=== PATIENT | female | born 1995 | race Caucasian/White ===

== ENCOUNTER 2019-07-17 15:49 | Inpatient (IN) ==
[2019-07-17] MEDS ORDERED: NS 1,000 ML IV ONE (16:27)
[2019-07-17] MEDS ORDERED: SOLU-MEDROL IV ONE (16:27)
[2019-07-17] MEDS ORDERED: ROCEPHIN IM ONE (16:27)
[2019-07-17] MEDS ORDERED: XYLOCAINE-MPF 1% INJ ONE (16:29)
[2019-07-17] MEDS ORDERED: ZITHROMAX LIQUID PO ONE (16:29)
--- NOTE | 2019-07-17 17:03 | Diag Imaging Result Doc PS360 ---
EXAM: CHEST-2 VIEWS HISTORY: short of breath TECHNIQUE: PA and Lateral chest x-ray COMPARISON: None. FINDINGS: The cardiomediastinal silhouette is within normal limits. There are coarse interstitial infiltrates with peribronchial cuffing and hyperinflation. No effusions. No pneumothorax. This appearance may be seen with cystic fibrosis. Correlate clinically. Tubing projects over the right neck. IMPRESSION: Peribronchial thickening and coarse bilateral interstitial infiltrates suggesting marked chronic lung disease. Electronically signed by Coty Mari 07/17/2019 5:01 PM
[2019-07-17] MEDS ORDERED: ROCEPHIN 1 GM in NS 50 ML IV ONE (18:01)
[2019-07-17 18:12] LABS: BASO# 0.07 X1000 (0.0-0.2); BASO% 0.5 % (0.0-0.8); EOS# 0.18 X1000 (0.0-0.7); EOS% 1.3 % (0.0-10.0); HEMOGLOBIN 12.6 g/dL (12.0-16.0); IMM GRAN# 0.02 X1000 (0.0-0.04); IMM GRAN% 0.1 % (0.0-0.5); LYMPH# 2.86 X1000 (1.2-3.4); LYMPH% 20.4 % (20.5-51.1); MCH 26.3 PG (27-31); MCHC 30.7 g/dL (33-37); MCV 85.6 FL (81-99); MONO# 0.84 X1000 (0.11-0.59); MPV 10.5 FL (7.4-10.4); NEUT# 10.04 X1000 (1.4-6.5); NEUT% 71.7 % (42.2-75.2); PLT 252 X1000 (130-400); RBC 4.79 XMIL (4.2-5.4); RDW 16.5 % (11.5-14.5); WBC 14.01 X1000 (4.8-10.8)
[2019-07-17 18:16] LABS: BE 0.5 mmoll (-3.0-3.0); BLOOD TYPE ARTERIAL; HCO3-(ACT) 25.2 mmoll (20.0-26.0); METHB 1.2 % (0.0-1.5); O2(CT) 17.7 mL/dL (15.0-23.0); O2HB 93.4 % (95.0-99.0); PCO2(98.6) 50 mmHg (35-45); PO2(98.6) 87 mmHg (60-100); SAMPLE BLOOD; SAO2 95.9 % (95.0-100.0); THB 13.4 g/dL (11.5-17.4); pH(98.6) 7.34 (7.35-7.45)
[2019-07-17 18:17] LABS: INR 1.06; PROTIME 14.4 Seconds (11.0-16.0)
[2019-07-17 18:18] LABS: PTT 43.5 Seconds (22.3-41.8)
[2019-07-17 18:19] LABS: ALLEN TEST YES; MODALITY CANNULA
[2019-07-17] MEDS ORDERED: DUONEB (A & A) INH ONE (18:22)
[2019-07-17 18:49] LABS: URINE SOURCE CLEAN CATCH
[2019-07-17 18:51] LABS: BILIRUBIN URINE NEGATIVE (NEGATIVE); BLOOD URINE NEGATIVE (NEGATIVE); COLOR YELLOW; GLUCOSE URINE NEGATIVE (NEGATIVE); KETONE URINE NEGATIVE (NEGATIVE); LEUKOCYTES URINE NEGATIVE (NEGATIVE); NITRITE URINE NEGATIVE (NEGATIVE); PH URINE 6.5; PROTEIN URINE TRACE mg/dL (NEGATIVE); SP GRAVITY URINE 1.022; TURBIDITY URINE HAZY (CLEAR); UROBILINOGEN URINE 3 mg/dL (NORMAL)
[2019-07-17 18:51] LABS: ALBUMIN 4.2 g/dL (3.5-5.0); ALKALINE PHOSPHATASE 181 U/L (32-104); BUN 24 mg/dL (8-22); CALCIUM 9.1 mg/dL (8.8-10.2); CK PROFILE 40 U/L (24-173); CREATININE 0.3 mg/dL (0.5-0.9); ESTIMATED GFR > 60; GLUCOSE 212 mg/dL (70-104); GOT 16 U/L (10-30); GPT 14 U/L (10-36); TCO2 22 mmol/L (25-35); TOTAL PROTEIN 8.6 g/dL (6.3-8.3)
[2019-07-17 18:53] LABS: UR EPITHELIAL CELLS <10 /HPF (<10); URINE BACTERIA NEGATIVE /HPF; URINE RBC <10 /HPF (<10); URINE WBC <10 /HPF (<10)
[2019-07-17 19:12] LABS: CHLORIDE 105 mmol/L (98-107); POTASSIUM 4.2 mmol/L (3.5-5.1); SODIUM 142 mmol/L (136-145)
[2019-07-17 19:15] LABS: AGAP 14; COSMO 293
[2019-07-17] MEDS ORDERED: ROCEPHIN 1 GM in NS 50 ML IV SCH (21:02)
[2019-07-17] MEDS ORDERED: TYLENOL PO PRN (21:02)
[2019-07-17] MEDS ORDERED: ZOFRAN IV PRN (21:02)
[2019-07-17] MEDS: DIAMOX PO SCH (22:01)
[2019-07-17] MEDS: NS 1,000 ML IV SCH (22:01)
[2019-07-17] MEDS: LIORESAL PO SCH (22:01)
[2019-07-17] MEDS: REGLAN PO SCH (22:01)
[2019-07-17] MEDS: DOXYCYCLINE 100 MG in NS 250 ML IV SCH (22:36)
[2019-07-17] MEDS: DUONEB (A & A) INH PRN (23:20)
[2019-07-17] MEDS: HUMALOG SUBQ SCH (23:44)
[2019-07-18] MEDS: HUMALOG SUBQ SCH (06:26)
[2019-07-18 06:49] LABS: HEMATOCRIT 34.6 % (37.0-47.0); HEMOGLOBIN 10.4 g/dL (12.0-16.0); MCHC 30.1 g/dL (33-37); MCV 86.5 FL (81-99); RDW 16.1 % (11.5-14.5); WBC 12.31 X1000 (4.8-10.8)
[2019-07-18 06:53] LABS: HEMOGLOBIN A1C 7.8 % (4.8-6.0)
[2019-07-18 07:06] LABS: AGAP 10; ALBUMIN 3.2 g/dL (3.5-5.0); ALKALINE PHOSPHATASE 152 U/L (32-104); BUN 22 mg/dL (8-22); CALCIUM 8.1 mg/dL (8.8-10.2); CHLORIDE 102 mmol/L (98-107); COSMO 287; CREATININE 0.3 mg/dL (0.5-0.9); ESTIMATED GFR > 60; GOT 13 U/L (10-30); GPT 12 U/L (10-36); POTASSIUM 4.4 mmol/L (3.5-5.1); SODIUM 132 mmol/L (136-145); TCO2 20 mmol/L (25-35); TOTAL PROTEIN 7.1 g/dL (6.3-8.3)
[2019-07-18 07:08] LABS: GLUCOSE 435 mg/dL (70-104)
--- NOTE | 2019-07-18 07:12 | HISTORY AND PHYSICAL ---
CHIEF COMPLAINT: Fever, cough. HISTORY OF PRESENT ILLNESS: The patient is a 24-year-old female who has a known history of cystic fibrosis. She presented to the emergency department with increased cough, congestion. Notes that symptoms have been going on for 2 days. She was seen approximately a week ago, placed on antibiotics by her electrical assembler. However, she notes that symptoms seem to have worsened over the past 2 days. Denies any chills. Has had some low-grade fevers. Has had production to her cough. ALLERGIES: No known drug allergies. MEDICATIONS: Diamox 25 b.i.d., albuterol p.r.n., baclofen, Levemir 16 units daily. REVIEW OF SYSTEMS: Positive cough, congestion, shortness of breath, increased work of breathing, production to her cough. Denies any wheezing. Denies headaches, blurred vision. Denies any focalized weakness. Denies diarrhea, constipation. Denies melena, hematochezia. Denies dysuria, frequency, urgency. PAST MEDICAL HISTORY: Cystic fibrosis. PAST SURGICAL HISTORY: None. FAMILY HISTORY: She has got a significant family history of cystic fibrosis. SOCIAL HISTORY: She lives at home, is cared for by her family. Does not smoke, drink, or use illicit substances. PHYSICAL EXAMINATION: VITAL SIGNS: She is currently afebrile, pulse 116, respiratory rate 26, BP 105/64, saturation 97% on room air. GENERAL: The patient is in mild distress. HEENT: Normocephalic. Her mucous membranes are dry. NECK: Supple. CARDIOVASCULAR: Tachycardia. CHEST: Decreased breath sounds bilaterally. Positive rhonchi throughout. Increased rate. No wheezing. ABDOMEN: Soft. EXTREMITIES: Moves all extremities. NEUROLOGIC: No changes. ASSESSMENT: 1. Pneumonia. 2. Cystic fibrosis. 3. Mild respiratory distress. 4. Early sepsis. PLAN: Continue antibiotics, continue fluids, and will follow. cc: Patrice Sexton MD
[2019-07-18] MEDS ORDERED: PULMOZYME INH SCH (07:30)
[2019-07-18] MEDS: HUMALOG (PARKWAY) SUBQ SCH ×4 (08:06→20:35)
[2019-07-18] MEDS: DOXYCYCLINE 100 MG in NS 250 ML IV SCH ×2 (10:27→21:48)
[2019-07-18] MEDS: LEVEMIR INSULIN *HA SUBQ SCH ×2 (10:27→10:36)
[2019-07-18] MEDS: LIORESAL PO SCH ×2 (11:45→20:34)
[2019-07-18] MEDS: DIAMOX PO SCH ×2 (11:45→20:34)
[2019-07-18] MEDS: REGLAN PO SCH ×2 (11:46→20:35)
[2019-07-18] MEDS: NS 1,000 ML IV SCH (11:58)
[2019-07-18] MEDS: DUONEB (A & A) INH PRN ×3 (11:59→19:17)
[2019-07-18] MEDS: MAXIPIME 2 GM in NS 100 ML IV SCH (12:41)
[2019-07-18] MEDS ORDERED: LIPASE PO SCH (13:45)
[2019-07-18] MEDS ORDERED: PROTEASE PO SCH (13:45)
[2019-07-18] MEDS ORDERED: AMYLASE PO SCH (13:45)
--- NOTE | 2019-07-18 15:29 | Diag Imaging Result Doc PS360 ---
EXAM: CT THORAX W/CONTRAST HISTORY: pneumonia TECHNIQUE: CT chest with intravenous contrast COMPARISON: None. FINDINGS: No pleural effusions. No cardiomegaly. No aortic aneurysm or dissection. No central pulmonary emboli. Moderately prominent mediastinal and hilar lymph nodes. There is bilateral bronchial wall thickening. Groundglass upper lobe infiltrates. Small hiatal hernia. Hazy left axillary lymph nodes. IMPRESSION: 1.Mild to moderately enlarged mediastinal and hilar adenopathy 2.Bronchial wall thickening with bilateral groundglass infiltrates 3.Small hiatal hernia This exam was performed using automated exposure control, adjustment of mA or kV according to patient size, and/or use of iterative reconstruction technique. Electronically signed by Kenyon Perez 07/18/2019 3:27 PM
--- NOTE | 2019-07-18 16:41 | PROGRESS NOTE ---
DATE: 07/18/2019 SUBJECTIVE: Patient has no major complaints. OBJECTIVE: Blood pressure is 95/63, heart rate of 104, respiratory rate of 20, temperature 97.6 degrees, 94% on 2.5 L.Cardiovascular: Regular rate and rhythm. Pulmonary: Bilateral breath sounds clear to auscultation diminished at the bases. No wheezing, some rales. LAB: White count 12, hemoglobin and hematocrit 10 and 34, platelets 225,000. Sugars up to 435. PROBLEM LIST: 1. Pneumonia in the setting of cystic fibrosis. We will change her to cefepime to better cover Pseudomonas in addition to her doxycycline, may need to consider vancomycin or Zyvox additionally. 2. Type 2 diabetes is not been well controlled but she has not been on her regular medications. 3. Protein malabsorption possibly related to CF. She is on tube feeds so we will continue treatment and follow closely. DISPOSITION: Pending her clinical status she will probably need a couple days here just to make sure she stabilizes. We will continue to follow closely. cc: Willard Chavarria MD
[2019-07-18] MEDS: CREON PO SCH ×2 (17:24→21:54)
[2019-07-18] MEDS ORDERED: LEVEMIR INSULIN *HA SUBQ SCH (21:00)
[2019-07-19] MEDS: MAXIPIME 2 GM in NS 100 ML IV SCH ×2 (01:27→15:33)
[2019-07-19] MEDS: LOVENOX SUBQ SCH ×2 (05:08→05:09)
[2019-07-19] MEDS: DUONEB (A & A) INH PRN ×2 (06:18→22:10)
[2019-07-19] MEDS: HUMALOG (PARKWAY) SUBQ SCH ×4 (06:29→21:37)
[2019-07-19 08:00] LABS: BASO# 0.03 X1000 (0.0-0.2); BASO% 0.4 % (0.0-0.8); EOS# 0.09 X1000 (0.0-0.7); EOS% 1.3 % (0.0-10.0); HEMATOCRIT 34.9 % (37.0-47.0); HEMOGLOBIN 10.3 g/dL (12.0-16.0); IMM GRAN# 0.03 X1000 (0.0-0.04); IMM GRAN% 0.4 % (0.0-0.5); LYMPH# 2.17 X1000 (1.2-3.4); LYMPH% 30.9 % (20.5-51.1); MCH 25.5 PG (27-31); MCHC 29.5 g/dL (33-37); MCV 86.4 FL (81-99); MONO# 0.49 X1000 (0.11-0.59); MPV 10.2 FL (7.4-10.4); NEUT# 4.22 X1000 (1.4-6.5); PLT 206 X1000 (130-400); RBC 4.04 XMIL (4.2-5.4); RDW 16.4 % (11.5-14.5); WBC 7.03 X1000 (4.8-10.8)
[2019-07-19 08:25] LABS: AGAP 11; BUN 18 mg/dL (8-22); CALCIUM 8.6 mg/dL (8.8-10.2); CHLORIDE 104 mmol/L (98-107); COSMO 285; CREATININE 0.3 mg/dL (0.5-0.9); ESTIMATED GFR > 60; GLUCOSE 298 mg/dL (70-104); POTASSIUM 3.8 mmol/L (3.5-5.1); SODIUM 136 mmol/L (136-145); TCO2 21 mmol/L (25-35)
[2019-07-19] MEDS: DIAMOX PO SCH ×2 (09:50→21:00)
[2019-07-19] MEDS: DOXYCYCLINE 100 MG in NS 250 ML IV SCH ×2 (09:51→20:58)
[2019-07-19] MEDS: CREON PO SCH ×4 (09:51→18:59)
[2019-07-19] MEDS: LIORESAL PO SCH ×2 (10:00→21:00)
[2019-07-19] MEDS: REGLAN PO SCH ×2 (10:00→21:00)
[2019-07-19] MEDS: PATIENT'S OWN MED INH SCH (11:03)
--- NOTE | 2019-07-19 11:46 | Diag Imaging Result Doc PS360 ---
EXAM: CHEST-2 VIEWS HISTORY: pna TECHNIQUE: PA and Lateral chest x-ray COMPARISON: 07/17/2019 FINDINGS: The cardiomediastinal silhouette is within normal limits. Marked bilateral interstitial infiltrates and peribronchial thickening may be slightly improved in the left lower lung zone. The remainder of the lungs are unchanged. No pleural effusion. There is new, mild subpleural edema within the fissures. There is a small bore catheter right neck. IMPRESSION: Perhaps mild improvement of the lung markings left lung. Otherwise, unchanged significant bilateral interstitial lung disease. Electronically signed by Coty Mari 07/19/2019 11:44 AM
[2019-07-19] MEDS: LEVEMIR INSULIN *HA SUBQ SCH (20:59)
[2019-07-20] MEDS: MAXIPIME 2 GM in NS 100 ML IV SCH ×2 (01:29→13:38)
[2019-07-20 07:10] LABS: AGAP 11; BUN 18 mg/dL (8-22); CALCIUM 8.6 mg/dL (8.8-10.2); CHLORIDE 104 mmol/L (98-107); COSMO 283; CREATININE 0.2 mg/dL (0.5-0.9); ESTIMATED GFR > 60; GLUCOSE 202 mg/dL (70-104); POTASSIUM 4.2 mmol/L (3.5-5.1); SODIUM 138 mmol/L (136-145); TCO2 23 mmol/L (25-35)
[2019-07-20] MEDS: HUMALOG (PARKWAY) SUBQ SCH ×4 (07:35→21:41)
[2019-07-20] MEDS: LOVENOX SUBQ SCH (07:35)
[2019-07-20 07:51] LABS: BASO# 0.07 X1000 (0.0-0.2); BASO% 1.1 % (0.0-0.8); EOS# 0.39 X1000 (0.0-0.7); EOS% 6.2 % (0.0-10.0); HEMATOCRIT 34.1 % (37.0-47.0); HEMOGLOBIN 10.3 g/dL (12.0-16.0); IMM GRAN# 0.01 X1000 (0.0-0.04); IMM GRAN% 0.2 % (0.0-0.5); LYMPH# 1.91 X1000 (1.2-3.4); LYMPH% 30.5 % (20.5-51.1); MCHC 30.2 g/dL (33-37); MCV 86.1 FL (81-99); MONO# 0.56 X1000 (0.11-0.59); MONO% 8.9 % (1.7-9.3); MPV 10.4 FL (7.4-10.4); NEUT# 3.32 X1000 (1.4-6.5); NEUT% 53.1 % (42.2-75.2); PLT 212 X1000 (130-400); RBC 3.96 XMIL (4.2-5.4); RDW 16.3 % (11.5-14.5); WBC 6.26 X1000 (4.8-10.8)
[2019-07-20] MEDS: DOXYCYCLINE 100 MG in NS 250 ML IV SCH ×2 (08:26→21:28)
[2019-07-20] MEDS: DIAMOX PO SCH ×2 (08:27→21:20)
[2019-07-20] MEDS: CREON PO SCH ×3 (08:27→21:00)
[2019-07-20] MEDS: LIORESAL PO SCH ×2 (08:27→21:21)
[2019-07-20] MEDS: REGLAN PO SCH ×2 (08:27→21:21)
[2019-07-20] MEDS ORDERED: S2 RACEPINEPHRINE 2.25% ONE (08:40)
[2019-07-20] MEDS ORDERED: ALBUTEROL NEB ONE (08:45)
[2019-07-20] MEDS: PATIENT'S OWN MED INH SCH (08:56)
[2019-07-20] MEDS: ALBUTEROL NEB INH PRN (19:57)
[2019-07-20] MEDS: LEVEMIR INSULIN *HA SUBQ SCH (21:41)
[2019-07-21] MEDS: MAXIPIME 2 GM in NS 100 ML IV SCH ×2 (02:26→17:56)
[2019-07-21 05:35] LABS: BASO# 0.06 X1000 (0.0-0.2); BASO% 0.7 % (0.0-0.8); EOS# 0.43 X1000 (0.0-0.7); EOS% 4.9 % (0.0-10.0); HEMATOCRIT 36.5 % (37.0-47.0); HEMOGLOBIN 10.9 g/dL (12.0-16.0); IMM GRAN# 0.01 X1000 (0.0-0.04); IMM GRAN% 0.1 % (0.0-0.5); LYMPH# 2.73 X1000 (1.2-3.4); LYMPH% 31.3 % (20.5-51.1); MCH 25.7 PG (27-31); MCHC 29.9 g/dL (33-37); MCV 86.1 FL (81-99); MPV 10.5 FL (7.4-10.4); PLT 253 X1000 (130-400); RBC 4.24 XMIL (4.2-5.4); RDW 16.3 % (11.5-14.5); WBC 8.73 X1000 (4.8-10.8)
--- NOTE | 2019-07-21 05:42 | PROGRESS NOTE ---
DATE: 07/20/2019 SUBJECTIVE: Patient notes that she is feeling a lot better. She is having less cough, congestion. Denies any fevers. PHYSICAL EXAMINATION: Vital Signs: She is afebrile. Pulse is 117, respiratory rate 18, BP 105/62. General: Patient is awake, alert. She is much improved currently from her admission. HEENT: Normocephalic. Neck: Supple. Cardiovascular: Tachycardia. Chest: Much improved air movement. No wheezing. Minimal rhonchi. Abdomen: Soft, nondistended, nontender. Extremities: Moves upper extremities. Lower extremities decreased movement due to cystic fibrosis. ASSESSMENT: 1. Pneumonia. 2. Cystic fibrosis. 3. Type 2 diabetes. 4. Protein malabsorption. PLAN: We are going to continue patient in the hospital today. Hopefully she will continue to improve and we can discharge her tomorrow. cc: Patrice Sexton MD
[2019-07-21] MEDS: LOVENOX SUBQ SCH (06:30)
[2019-07-21] MEDS: DOXYCYCLINE 100 MG in NS 250 ML IV SCH (09:38)
[2019-07-21] MEDS: DIAMOX PO SCH (09:40)
[2019-07-21] MEDS: CREON PO SCH (09:40)
[2019-07-21] MEDS: REGLAN PO SCH (09:40)
[2019-07-21] MEDS: LIORESAL PO SCH (09:40)
[2019-07-21] MEDS: HUMALOG (PARKWAY) SUBQ SCH ×2 (09:50→14:27)
[2019-07-21] MEDS: PATIENT'S OWN MED INH SCH (10:14)
[2019-07-21] MEDS: ALBUTEROL NEB INH PRN (10:15)
[2019-07-21 15:40] VITALS: BP 117/74
--- NOTE | 2019-07-22 15:38 | DISCHARGE SUMMARY ---
ADMISSION DATE: 07/17/2019 DISCHARGE DATE: 07/21/2019 PRIMARY CARE PHYSICIAN: DAE Fraser. ADMISSION DIAGNOSES: 1. Pneumonia. 2. Cystic fibrosis. 3. Mild respiratory distress. 4. Early sepsis. DISCHARGE DIAGNOSES: 1. Pneumonia, improved. 2. Cystic fibrosis. 3. Type 2 diabetes. 4. Protein malabsorption. SUMMARY OF FINDINGS: This is a 24-year-old female with a known history of cystic fibrosis, who presented with increased cough, congestion. Symptoms have been going on for 2 days prior to arriving. About a week ago, had been placed on some antibiotics by her neuroscience director na, but felt that her symptoms had worsened over the past 2 days prior to arriving, had some low-grade fevers and production to her cough. Her chest x-ray showed peribronchial thickening and coarse bilateral interstitial infiltrates suggesting marked chronic lung disease. Her chest CT showed mild to moderately enlarged mediastinal and hilar adenopathy, bronchial wall thickening with bilateral ground-glass infiltrates. She was placed on IV antibiotics, breathing treatments, and pulmonary toilet, and has improved. Has been afebrile for greater than 24 hours. White count is back to normal this morning at 8.73, and so it is now felt that she can safely be discharged home. DISCHARGE MEDICATIONS: Include cefdinir 300 mg p.o. b.i.d., doxycycline 100 mg per her PEG tube b.i.d. She will continue her home medications, Diamox 250 mg p.o. b.i.d., baclofen 10 mg p.o. b.i.d., Pulmozyme 2.5 mg inhalation daily, Levemir 16 units subcutaneous at bedtime, Creon 45782 unit capsule as directed, Reglan 10 mg p.o. b.i.d., and albuterol neb inhalation b.i.d. FOLLOWUP: She will need to follow up with her primary care physician in the next 1 to 2 weeks and call their office for an appointment. All discharge instructions have been reviewed with the patient and she verbalizes understanding. TIME SPENT: 35 minute discharge. Dictated by DAE Franklin for Patrice Sexton MD cc: DAE Franklin MD Sherry Clounch
--- NOTE | 2019-07-22 22:01 | DISCHARGE SUMMARY ---
ADMISSION DATE: 07/17/2019 DISCHARGE DATE: 07/21/2019 ADDENDUM: Patient seen and examined by myself. Full note dictated and discussed with nurse practitioner. Patient has a known history of cystic fibrosis. Presented to the hospital with new onset pneumonia. Thankfully, her type 2 diabetes remained stable through the hospital stay. She was placed on antibiotics. On discharge, she is feeling much better. In fact, states that she feels back to her usual self. Therefore, we will discharge her home. She will continue doxycycline and Omnicef at home for a total 7-day treatment. Please see full note. cc: Patrice Sexton MD
--- NOTE | 2019-08-15 19:47 | PROVIDER DOCUMENTATION ---
This chart was entered by Natalia Summers Scribe, acting as scribe for Deejay Pinedo MD. HPI-Respiratory General - General Chief Complaint: SEPSIS ALERT - P Stated Complaint: SOB-CF PATIENT Time Seen by Provider: 07/17/19 16:04 Source: family (mother) Allergies/Adverse Reactions: Patient Allergies Allergy/AdvReac Type Severity Reaction Status Date / Time No Known Allergies Allergy Verified 07/17/19 16:29 Home Medications: Home Medication List Medication Instructions Recorded Confirmed Last Taken Type Acetazolamide [Diamox] 250 mg PO BID 07/17/19 07/17/19 Unknown History Albuterol Sulfate 0.63 mg INHALATION BID 07/17/19 07/17/19 Unknown History Baclofen 10 mg PO BID 07/17/19 07/17/19 Unknown History Dornase Antoni [Pulmozyme] 2.5 mg INH DAILY 07/17/19 07/17/19 Unknown History Insulin Detemir [Levemir] 16 unit SUBQ DAILY 07/17/19 07/17/19 Unknown History Lipase/Protease/Amylase [Ahsan Zamorano 1 ea PO DIRECTED 07/17/19 07/17/19 Unknown History 24,000 Units Capsule] Metoclopramide [Reglan] 10 mg PO BID 07/17/19 07/17/19 Unknown History - History of Present Illness-Resp Nature of Presenting Problem: Patient is a 24 year old female who presents with mother for shortness of angie ath. Mother states cough with shortness of breath. Mother reports symptoms have been present for 2 days. Mother states patient has cystic fibrosis. Mother reports patient was placed on an antibiotic 1 week ago by her railroad dining car stewardess. Patient denies fever and body aches. Dr Pinedo of [place] is railroad dining car stewardess, routinely uses BID neb albuterol, pulmozyme and chest percussion vest. Quality of Pain: reports: none Severity in ED: reports: mild Onset/Duration: reports: 2 days ago Timing: reports: still present, getting worse Cough Quality/Degree: reports: moderate, productive cough, sputum Associated Symptoms: reports: cough, shortness of breath Similar Symptoms Previously?: Yes Recently seen or treated by another doctor?: Yes Review of Systems - Adult - REVIEW OF SYSTEMS - ADULT ROS:: ROS per family (mother) Constitutional: reports: no symptoms reported. denies: chills, fever, fatique Eyes: reports: no symptoms reported Ears, Nose, Mouth & Throat: reports: no symptoms reported Cardiovascular: reports: no symptoms reported Respiratory: reports: see HPI, cough, shortness of breath. denies: wheezing Gastrointestinal: reports: no symptoms reported Genitourinary: reports: no symptoms reported Musculoskeletal: reports: no symptoms reported Integumentary: reports: no symptoms reported Neurological: reports: no symptoms reported Psychiatric: reports: no symptoms reported Endocrine: reports: no symptoms reported Hematologic/Lymphatic: reports: no symptoms reported Allergic/Immunologic: reports: no symptoms reported All Other Systems: Reviewed and Negative Past History - Adult - PAST MEDICAL HISTORY-ADULT Review of Records: reports: Old Records Reviewed, Nursing Assessment Review, Medications Reviewed, Social history reviewed & non-contributory. Major Childhood Illnesses: reports: denies history Cardiovascular: reports: denies history Respiratory: reports: cystic fibrosis Gastrointestinal: reports: denies history Obstetrical/Gynecological: reports: denies history Genitourinary: reports: denies history Musculoskeletal: reports: denies history Neurological: reports: denies history Psychiatric: reports: denies history Endocrine/Immune: reports: denies history Other Conditions: reports: denies history - PRIOR SURGERIES/PROCEDURES Surgical/Procedure History: reports: reviewed, not pertinent - IMMUNIZATION STATUS Childhood Immunizations: See Nurse Assessment Flu Vaccine: See Nurse Assessment - FAMILY HISTORY Family History: reviewed, not pertinent - SOCIAL HISTORY Smoking: denies Substance Use: denies Living Situation: family Physical Exam-General - PHYSICAL EXAM-ADULT Initial Vital Signs Reviewed: Yes - CONSTITUTIONAL General Appearance: alert, mild distress. negative: lethargic - HEAD, EARS, NOSE, MOUTH & THROAT HENMT: normocephalic/atraumatic, other (dry mucous membranes). negative: angioedema - RESPIRATORY Respiratory: chest non-tender, respiratory distress (mild), rales (moderate diffuse rales bilaterally), increased rate - CARDIOVASCULAR Cardiovascular: normal peripheral pulses, tachycardia. negative: regular rate, rhythm - GASTROINTESTINAL (ABDOMEN) Abdominal Exam: normal bowel sounds, non tender, soft. negative: distended, guarding - SKIN Integumentary: normal turgor, warm/dry, pallor. negative: diaphoresis - PSYCHIATRIC Psych/Mental Status: normal mood/affect. negative: anxious, tearful Progress - PLAN OF CARE/RESULTS Progress/Plan/Lab Results: Vital Signs - 8 hr 12//19 15:54 Pulse Rate 116 H Respiratory Rate 26 H Blood Pressure 105/64 O2 Sat by Pulse Oximetry 97 Laboratory Results - last 24 hr 07/17/19 07/17/19 07/17/19 17:52 17:52 17:52 WBC 14.01 H RBC 4.79 Hgb 12.6 Hct 41.0 MCV 85.6 MCH 26.3 L MCHC 30.7 L RDW Std Deviation 16.5 H Plt Count 252 MPV 10.5 H Immature Gran % (Auto) 0.1 Neut % (Auto) 71.7 Lymph % (Auto) 20.4 L Kershaw % (Auto) 6.0 Eos % (Auto) 1.3 Baso % (Auto) 0.5 Immature Gran # (Auto) 0.02 Neut # (Auto) 10.04 H Lymph # (Auto) 2.86 Kershaw # (Auto) 0.84 H Eos # (Auto) 0.18 Baso # (Auto) 0.07 PT 14.4 INR 1.06 PTT (Actin FS) 43.5 H Specimen Type ARTERIAL Sample Site R RADIAL pH 7.34 L pCO2 50 H pO2 87 HCO3 25.2 Base Excess 0.5 Oxyhemoglobin 93.4 L ABG O2 Sat (Calculated) 17.7 ABG O2 Saturation 95.9 ABG Carboxyhemoglobin 1.40 ABG Methemoglobin 1.2 Luca Test YES A-a O2 Difference 79.0 Total Hemoglobin 13.4 Lactate 0.50 Liter Flow 3.0 Blood Gas Modality CANNULA FiO2 % 32.0 Orders Category Date Time Status Cardiac Monitoring DIRECTED Care 07/17/19 16:03 Active IV Insertion ORDERED Care 07/17/19 16:03 Completed Notify MD of + Sepsis Screen NOW Care 07/17/19 16:03 Active Notify Physician As Ordered Care 07/17/19 16:03 Active CHEST-2 VIEWS [RAD] Stat Exams 07/17/19 16:26 Completed ABG [RESP] Routine Lab 07/17/19 17:52 Completed BLOOD CULTURE [BLDCUL] Stat Lab 07/17/19 17:56 Ordered CBC WITH DIFF [HEME] Stat Lab 07/17/19 17:52 Completed CK PROFILE [SP CHEM] Stat Lab 07/17/19 17:52 Received COMPREHENSIVE METABOLIC PANEL [CHEM] Stat Lab 07/17/19 17:52 Received LACTATE, PLASMA [CHEM] Lab 07/17/19 17:52 Received LACTATE, PLASMA [CHEM] Lab 07/17/19 19:15 Uncollected LACTATE, PLASMA [CHEM] Lab 07/17/19 22:15 Uncollected PROTIME WITH INR [COAG] Stat Lab 07/17/19 17:52 Completed PTT [COAG] Stat Lab 07/17/19 17:52 Completed TROPONIN T Stat Lab 07/17/19 17:52 Received URINALYSIS W/POSS RFLX CULT [URINALYSIS] Stat Lab 07/17/19 16:03 Uncollected 0.9% Sodium Chloride Inj [Ns] 1,000 ml Med 07/17/19 16:27 Discontinued IV 999 mls/hr Albuterol 2.5MG/Ipratrop 0.5MG [Duoneb (A & A)] Med 07/17/19 18:22 Once 3 ml INH NOW ONE Azithromycin [Zithromax Liquid] Med 07/17/19 16:29 Discontinued 400 mg PO NOW ONE CefTRIAXONE [Rocephin] Med 07/17/19 16:27 Discontinued 1 gm IM NOW ONE CefTRIAXONE [Rocephin] 1 gm Med 07/17/19 18:01 Active 0.9% Sodium Chloride Inj [Ns] 50 ml IV NOW Lidocaine 1% Pf [Xylocaine-Mpf 1%] Med 07/17/19 16:29 Discontinued 5 ml INJ NOW ONE Methylprednisolone Sod Succ [Solu-Medrol] Med 07/17/19 16:27 Discontinued 125 mg IV NOW ONE Aerosol Treatments Routine Oth 07/17/19 18:23 Ordered Aerosol Treatments Stat Oth 07/17/19 18:23 Ordered Oxygen Device Stat Oth 07/17/19 16:03 Active Transfer/Admit Order [TRANSFER] Routine Transfer 07/17/19 18:10 Ordered Result Diagrams: 07/17/19 17:52 - REASSESSMENT Reassessment #1 Time Reassessed: 18:26 Status: improving (7.34/50/87 on 2 liter O2.) - XRAY 1 XRAY Study: Chest Impression: See EMR Report ( EXAM: CHEST-2 VIEWS HISTORY: short of breath TECHNIQUE: PA and Lateral chest x-ray COMPARISON: None. FINDINGS: The cardiomediastinal silhouette is within normal limits. There are coarse interstitial infiltrates with peribronchial cuffing and hyperinflation. No effusions. No pneumothorax. This appearance may be seen with cystic fibrosis. Correlate clinically. Tubing projects over the right neck. IMPRESSION: Peribronchial thickening and coarse bilateral interstitial infiltrates suggesting marked chronic lung disease. Electronically signed by Coty Mari 07/17/2019 5:01 PM 07/17/19 1701 Interpreting Physician: Coty Mari MD Dictated Date/Time: 07/17/19 1652 cc: Deejay Pinedo MD; Britany Nieto NP) - CONSULTS/PCP/HOSPITALIST Notification #1 *Consult/PCP/Hospitalist*: DR BRUNSON Time Discussed: 18:02 Consult Disposition: Admit Departure - Departure Date of Disposition Decision: 07/17/19 Time of Disposition Decision: 18:03 DIAGNOSIS: Cystic fibrosis, Bronchitis, Respiratory distress Disposition: ADMITTED INPATIENT 09 Certified Medical Emergency: Emergent Condition: Stable Referrals and Follow-Ups: Britany Nieto NP [Primary Care Provider] - - Critical Care Note This patient required my direct & personal management of CC.: No Attestation - Physician/ ALEJANDRO Attestation Patient care was provided by Advanced Practice Provider:: No The physician spent face to face time with patient:: Yes Advanced Practice Provider documentation review:: Supervising physician onsite and consulted in the evaluation and care of this patient. The physician did have a face to face encounter with the patient. This chart was documented by the indicated scribe, (Natalia Summers Scribe) and accurately reflects the services I performed and decisions made by me, Deejay Pinedo MD, as attested by the provider's signature.
== END 2019-07-21 16:10 | disposition home or self-care (01) | DRG 871 ==
LOC: P.ED 15:49 → SUATTDRO 20:44 → P.MEDSURG 20:44
PROVIDERS: ATTEND Family Medicine